=== PATIENT | female | born 1970 | race Caucasian/White ===

== ENCOUNTER 2025-04-07 17:49 | Emergency (ER) | payer BC, SELFPAY ==
--- OUTSIDE RECORDS SUMMARY | 2025-04-06 09:00 | XMS_ITS | Encounter Summary ---
Author Organization [facility] Address [address] [place] [id number] Phone Care Team Providers Care Culture Manager Name Role Phone Oniel Denis COOKER TENDER Primary Care Provider [phone] Reason for Visit * Reason Comments Sore Throat Pt presents for eval of sore throat Encounter Details Date Type Department Care Team (Late st Contact Info) Description 2025 9:00 AM EDT Office Visit [facility] [address] [address] Lolly Burk FNP [address] [place] [id number] [email or web address] Neck swelling (Primary Dx) Social History Tobacco Use Types Packs/Day Years Used Date Smoking Tobacco: Never Assessed Education Answer Date Recorded Are you interested in more education? Not on shaun e 2025 Are you concerned about learning? Not on file 2025 No 2025 No 2025 Digital Access Answer Date Recorded No 2025 No 2025 Reliable internet access at home? Not on file 2025 Device with a working camera? Not on file Comments Unknown Sex and Gender Information Value Date Recorded Sex Assigned at Not on file Legal Sex Female 5:24 AM EDT Gender Identity Not on file Sexual Orientation Not on file documented as of this encounter Last Filed Vital Signs Vital Sign Reading Time Taken Comments Blood Pressure 150/80 2025 9:26 AM EDT Pulse 66 2025 9:26 AM EDT Temperature 36.3 C (97.3 F) 2025 9:26 AM EDT Respiratory Rate 17 2025 9:26 AM EDT Oxygen Saturation 99% 2025 9:26 AM EDT Inhaled Oxygen Concentration - - Weight - - Height - - Body Mass Index - - documented in this encounter Patient Instructions * Patient Instructions* Lolly Burk FNP - 2025 9:00 AM EDT I will call if strep test is positive. Ear, throat, oral exam without signs of infection. Recommend pcp for ultrasound of right sided neck swelling and pain. It may be worth calling your new pcp and explaining symptoms and visit. Otherwise ED for further evaluation. documented in this encounter Progress Notes * Lolly Burk FNP - 2025 9:00 AM EDT Images from the original note were not included. Subjective: Patient ID: Mindy Travis is a 55 y.o. female. Pt with sore right neck for 3 weeks. Denies feeling ill or other symptoms. Review of Systems Constitutional: Negative for fatigue and fever. HENT: Negative for congestion, ear pain and sore throat. Eyes: Negative for pain. Respiratory: Negative for cough and shortness of breath. Cardiovascular: Negative for chest pain. Gastrointestinal: Negative for abdominal pain, constipation, diarrhea, nausea and vomiting. Genitourinary: Negative for dysuria and flank pain. Neurological: Negative for dizziness, light-headedness and headaches. Hematological: Negative for adenopathy. All other systems reviewed and are negative. Skin: Negative for color change. Musculoskeletal: Positive for neck pain (pain and swelling, soft tissue). Negative for joint pain and back pain. Vitals: 04/06/25 0926 BP: (!) 150/80 Pulse: 66 Resp: 17 Temp: 36.3 ??C (97.3 ??F) TempSrc: Temporal SpO2: 99% Objective: Physical Exam Vitals and nursing note reviewed. Constitutional: General: She is not in acute distress. Appearance: Normal appearance. She is not ill-appearing, toxic-appearing or diaphoretic. HENT: Head: Normocephalic and atraumatic. Right Ear: Tympanic membrane and ear canal normal. Left Ear: Tympanic membrane and ear canal normal. Nose: Nose normal. No congestion or rhinorrhea. Mouth/Throat: Mouth: Mucous membranes are moist. No oral lesions. Pharynx: Oropharynx is clear. Uvula midline. No pharyngeal swelling, oropharyngeal exudate, posterior oropharyngeal erythema or uvula swelling. Tonsils: No tonsillar exudate or tonsillar abscesses. 0 on the right. 0 on the left. Eyes: Extraocular Movements: Extraocular movements intact. Conjunctiva/sclera: Conjunctivae normal. Pupils: Pupils are equal, round, and reactive to light. Neck: Thyroid: No thyromegaly. Comments: Soft tissue swelling left side of neck without palpable mass. No erythema. Cardiovascular: Rate and Rhythm: Normal rate and regular rhythm. Pulses: Normal pulses. Heart sounds: Normal heart sounds. Pulmonary: Effort: Pulmonary effort is normal. Breath sounds: Normal breath sounds. Abdominal: General: Abdomen is flat. Musculoskeletal: General: Normal range of motion. Cervical back: Normal range of motion and neck supple. Lymphadenopathy: Cervical: No cervical adenopathy. Skin: General: Skin is warm and dry. Neurological: General: No focal deficit present. Mental Status: She is alert and oriented to person, place, and time. Mental status is at baseline. Psychiatric: Mood and Affect: Mood normal. Behavior: Behavior normal. Thought Content: Thought content normal. Judgment: Judgment normal. Results for orders placed or performed in visit on 04/06/25 POCT Rapid Strep A Result Value Ref Range Strep A, PCR Not Detected Not Detected Procedure: Procedures Assessment/Plan: Diagnosis Plan 1. Neck swelling Assessment and Plan: Well appearing pt in nad complaining of right side of neck pain and swelling for 3 weeks. Denies any other symptoms. Soft tissue swelling visible without palpable mass or erythema. Pt reports in November a bone spur removed on that side from jaw bone. No pain in oral cavity. Discussed and agreed on pharm and non pharm plan of care. Pt advised ultrasound would likely be done to evaluate. Pt states [place] Has not seen pcp yet. Advised call pcp to see if they can see your sooner or go to the ED. documented in this encounter Plan of Treatment Not on file documented as of this encounter Procedures Procedure Name Priority Date/Time Associated Diagnosis Comments POCT RAPID STREP A Routine 2025 9: 30 AM EDT documented in this encounter Results * POCT Rapid Strep A (2025 9:30 AM EDT) [facility] Signature Strep A, PCR Not Detected Not Detected C [facility] 2025 9:30 AM EDT 2025 9:58 AM EDT Lolly NEWELL POINT OF CARE TEST ORDERABL ES Final Result [facility] [address] [address], [facility] [phone] documented in this encounter Visit Diagnoses Diagnosis Neck swelling- Primary Swelling, mass, or lump in head and neck documented in this encounter Care Teams Culture Manager Relationship Specialty Start Date End Date Oniel Denis NP [address] [place] [id number] PCP - General 04/06/25 documented as of this encounter Additional Source Comments The information contained in this document represents components of the legal health record. It is not the complete legal health record.[facility]
--- NOTE | ~2025-04-07 | XR_ITS ---
CLINICAL HISTORY: cough x3 wks 2 view chest x-ray Comparison: None provided Findings: No consolidation, pneumothorax, or pleural effusion. Mild/borderline cardiomegaly. Degenerative changes include imaged left AC joint. IMPRESSION: No consolidation. This document has been electronically signed by: Terrence Rosales MD on 04/07/2025 19:35:32
[2025-04-07 18:11] VITALS: BP 178/89; PULSE 75; RESP 16; TEMP 36.1; O2SAT 97; BMI 28.9
--- NOTE | 2025-04-07 18:12 | ED_ITS ---
HPI - General Adult General Chief complaint: General Medical Stated complaint: Cough Time Seen by Provider: 04/07/25 20:09 Source: patient Limitations: no limitations History of Present Illness ED Provider: Alice Borrego PA-C HPI narrative: 55-year-old female who is otherwise healthy, presents with sore throat for weeks. Patient is concerned given the duration of her symptoms. She seems to improve, then relapses. She states this is the worse sore throat over life. She has been tested for strep throat, has had viral panels, everything has come back negative. The patient has no risk factors for STD, she has not had fevers. She states the lymph nodes in her neck are prominent. She is concerned she has a lymphoma. She has not been tested for mononucleosis. Related Data Allergies Allergy/AdvReac Type Severity Reaction Status Date / Time No Known Allergies Allergy Verified 04/07/25 18:12 Review of Systems 2 Review of Systems: Yes all other systems are reviewed and are negative Constitutional: Constitutional: Reports fatigue and Denies fever(s) ENT: Reports sore throat Cardiovascular: Cardiovascular: Denies dyspnea Respiratory: Respiratory: Denies cough and Denies dyspnea Gastrointestinal: Gastrointestinal: Denies nausea and Denies vomiting Endocrine: Endocrine: Reports fatigue PMFSH Past Medical History Attestation statement: The following information was validated with the patient. Social History Social History Smoked in Last 30 Days: No Use of substances other than those prescribed or required for medical reasons: No Advance Directives: No Advance Directives Information Provided: Yes Do you have a plan to hurt others: No Plan Physical Exam ED Vital Signs: Vital Signs - 24 hr 04/07/25 18:11 04/07/25 20:29 Temperature 97 F 98.6 F Pulse Rate 75 64 Respiratory Rate 16 14 Blood Pressure 178/89 H 135/58 L Pulse Oximetry 97 96 Oxygen Delivery Method Room Air Room Air BMI result Body Mass Index 28.9 Const Other: Alert well-appearing Orientation/consciousness: patient oriented x3 HENMT Other: Opiate erythematous, without exudate, no lesions present over the oropharynx, uvula midline, no sublingual fluctuance, no swelling inferior to the jawline. No trismus no drooling Neck Other: Anterior cervical lymphadenopathy Resp Effort & Inspection: normal respiratory effort Cardio Other: Normal peripheral perfusion Skin Other: Warm dry no rash Neuro General: patient oriented x3, gait normal, no focal motor deficits and CN's II- XI intact bilaterally Psych Other: Cooperative Course Course Course Narrative: This is a Rapid Medical Examination (RME) performed by Dede Rey PA-C in triage. Full HPI, ROS, assessment and treatment plan per primary provider in the Main ED. Hx: 55 yo F hx of breast cancer in remission here with intermittent sore throat and cough x3 weeks. evaluated at , noted to have swelling to right cervical LN - discussed possible lymphoma/ cancer given hx. advised to come to the ED for further eval. no PCP - has an appointment with one in 1 mo. lived in [place] x25 years, returned two months ago. Plan: viral/strep swabs, screening labs Medical Decision Making Medical Decision Making [facility] Narrative: 55-year-old female who is otherwise healthy, presents with sore throat for weeks. Patient is concerned given the duration of her symptoms. She seems to improve, then relapses. She states this is the worse sore throat over life. She has been tested for strep throat, has had viral panels, everything has come back negative. The patient has no risk factors for STD, she has not had fevers. She states the lymph nodes in her neck are prominent. She is concerned she has a lymphoma. She has not been tested for mononucleosis. No chronic issues History: Per patient I have considered the following differential diagnoses: Strep pharyngitis, viral pharyngitis, mononucleosis, RPA, GAS TRANSFER OPERATOR, Tom angina, oral candidal infection, STD related pharyngitis Plan: Screening labs including viral panel, strep screen ordered from triage and a chest x-ray. Her assessment is negative. I explained to the patient that her cell blood count and differential were completely normal. That there are numerous cons of lymphoma, if she had lymphoma, she would have many other symptoms. Adding on mono test. This is likely still viral and not mononucleosis. She has no exam findings consistent with a RPA or GAS TRANSFER OPERATOR. She also has no exam findings consistent with Tom angina. She has no risk factor for gonorrhea or chlamydia, and there are no lesions of the oropharynx that are consistent with an oral candidal infection. I have independently reviewed the following tests: Labs: No leukocytosis, not anemic, no electrolyte abnormality, COVID, influenza, strep panel negative, mononucleosis negative Chest x-ray:Findings: No consolidation, pneumothorax, or pleural effusion. Mild/borderline cardiomegaly. Degenerative changes include imaged left AC joint. IMPRESSION: No consolidation. Differential Diagnosis Differential Diagnoses: The differential diagnosis associated with the presentation includes See medical decision-making Admission/Observation Consideration of admission/observation: Escalation of care including admission/observation considered Not applicable Lab Data MDM Lab Attestation statement: I reviewed the patient's lab results. 04/07/25 18:34 04/07/25 18:34 Labs: Lab Results 04/07/25 04/07/25 Range/Units 18:34 20:33 WBC 5.4 (4.8-10.8) X10*3/uL RBC 4.58 (4.20-5.50) X10*6/uL Hgb 12.9 (12.0-16.0) g/dl Hct 40.4 (37.0-47.0) % MCV 88.2 (80.0-98.0) fL MCH 28.2 (27.0-33.0) pg MCHC 31.9 (31.0-35.0) g/dl RDW 13.2 (11.0-16.0) % Plt Count 216 (160-400) X10*3/uL MPV 10.9 (9.4-12.3) fL Immature Gran % (Auto) 0.9 H (0.0-0.4) % Neut % (Auto) 66.8 (45-73) % Lymph % (Auto) 21.6 (20-40) % [place] % (Auto) 6.1 (2-11) % Eos % (Auto) 3.9 (0-4) % Baso % (Auto) 0.7 (0-2) % Lymph # (Auto) 1.2 (1.2-4.9) X10*3/uL [place] # (Auto) 0.3 (0.1-1.2) X10*3/uL Eos # (Auto) 0.2 (0.0-0.4) X10*3/uL Baso # (Auto) 0.0 (0.0-0.2) X10*3/uL Abs Immat Gran (auto) 0.05 H (0.00-0.03) X10*3/uL Absolute Neuts (auto) 3.6 (2.0-8.3) x10*3/uL Absolute Nucleated RBC 0.000 (0.0-0.012) X10*3/uL Nucleated RBC % (auto) 0.0 (0.0-0.2) /100WBC Sodium 141 (135-145) mmol/L Potassium 4.0 (3.3-5.1) mmol/L Chloride 104 (96-108) mmol/L Carbon Dioxide 29 (22-29) mmol/L Anion Gap 12 (12-20) BUN 11 (9-16) mg/dL Creatinine 0.83 (0.5-1.4) mg/dL Estim Creat Clear Calc 89.0 Estimated GFR > 60 Random Glucose 115 (60-115) mg/dL Calcium 9.3 (8.4-10.2) mg/dL Total Bilirubin 0.4 (0.0-1.0) mg/dL AST 18 (5-31) U/L ALT 16 (0-31) U/L Alkaline Phosphatase 84 (39-117) U/L Total Protein 6.7 (6.5-8.0) g/dL Albumin 4.4 (3.5-5.0) g/dL COVID-19 (LARON) Negative (Negative) COVID-19 Clin Com See Note Monoscreen Negative (Negative) Influenza Type A (DEMETRIS) Negative (Negative) Influenza Type B (DEMETRIS) Negative (Negative) Influenza A & B Note See Note S. pyogenes GrpA DEMETRIS Negative (Negative) Radiology Impression Discussion of test interpretation with radiology: I have reviewed the radiologist's reading. Discharge Plan Discharge Clinical Impression: Pharyngitis, Acute viral syndrome Patient Disposition: Home, Self-Care Instructions: Pharyngitis (ED), Viral Syndrome (ED) Additional Instructions: All of your screening labs were completely normal, in particular your blood cell differential. You were tested for COVID influenza a and B, mononucleosis and strep pharyngitis, that testing was negative. The chest x-ray is clear for pneumonia. You were having a prolonged viral syndrome. See home care instructions. Some viruses can last for multiple weeks. You need to establish primary care, I provided you with a list of local providers. You have to call to see who is accepting new patients. Interventions: ED Discharge Assessment Last Done: 04/07/25 22:38 Discharge Date/Time: 04/07/25 22:39 Print Language: Libyan
[2025-04-07 18:39] LABS: MANUAL DIFF FLAG NO
[2025-04-07 18:48] LABS: Hematocrit 40.4 % (37.0-47.0); Hemoglobin 12.9 g/dl (12.0-16.0); Imm Gran Abs Auto 0.05 X10*3/uL (0.00-0.03); Imm Gran Pct Auto 0.9 % (0.0-0.4); Lymphocytes Absolute Auto 1.2 X10*3/uL (1.2-4.9); Mean Corpuscular HGB Conc 31.9 g/dl (31.0-35.0); Mean Corpuscular Hemoglobin 28.2 pg (27.0-33.0); Mean Corpuscular Volume 88.2 fL (80.0-98.0); NRBC Abs Auto 0.000 X10*3/uL (0.0-0.012); NRBC Pct Auto 0.0 /100WBC (0.0-0.2); Platelet Count 216 X10*3/uL (160-400); Red Blood Count 4.58 X10*6/uL (4.20-5.50); White Blood Count 5.4 X10*3/uL (4.8-10.8)
[2025-04-07 18:54] LABS: IDNOW Serial# 6674DD1D; Strep A Nucleic Acid Negative (Negative)
[2025-04-07 18:55] LABS: Alanine Aminotransferase 16 U/L (0-31); Albumin Level 4.4 g/dL (3.5-5.0); Alkaline Phosphatase 84 U/L (39-117); Anion Gap 12 (12-20); Aspartate Amino Transferase 18 U/L (5-31); Blood Urea Nitrogen 11 mg/dL (9-16); Calcium 9.3 mg/dL (8.4-10.2); Carbon Dioxide 29 mmol/L (22-29); Chloride 104 mmol/L (96-108); Creatinine Clr Calc Pharmacy 89.0; Estimated Glomerular Filt Rate > 60; Potassium 4.0 mmol/L (3.3-5.1); Sodium 141 mmol/L (135-145); Total Protein 6.7 g/dL (6.5-8.0)
[2025-04-07 19:00] LABS: COVID-19 Test Negative (Negative); IDNOW Serial# 55D5AD1C
[2025-04-07 19:02] LABS: IDNOW Serial# 58CA691E; Influenza B2 Negative (Negative)
--- OUTSIDE RECORDS SUMMARY | 2025-04-07 19:31 | XMS_ITS | Clinical Summary ---
Author Organization [facility] Address [address] [place] [id number] Phone Care Team Providers Care Alcohol Law Enforcement Agent Name Role Phone Oniel Denis CATALINA Primary Care Provider [phone] Allergies Active Allergy Reactions Criticality Noted Date Comments Iodine 2025 Medications metoprolol tartrate (LOPRESSOR) 50 MG tablet Take 50 mg by mouth 2 (two) times a day. Active Active Problems No known active problems Encounters Date Type Department Care Team Description 2025 9:00 AM EDT [facility] Visit [facility] at [address] [address] Lolly Burk, VARNISH MAKER Neck swelling (Primary Dx) from Last 3 Months Social History Tobacco Use Types Packs/Day Years [...] on file Sexual Orientation Not on file Last Filed Vital Signs Vital Sign Reading Time Taken Comments Blood Pressure 150/80 2025 9:26 AM EDT Pulse 66 2025 9:26 AM EDT Temperature 36.3 C (97.3 F) 2025 9:26 AM EDT Respiratory Rate 17 2025 9:26 AM EDT Oxygen Saturation 99% 2025 9:26 AM EDT Inhaled Oxygen Concentration - - Weight - - Height - - Body Mass Index - - Plan of Treatment Health Maintenance Due Date Last Done Comments Adult Td,Tdap Booster 1971 LIPID PANEL 1971 DEPRESSION SCREENING 1983 SMOKING Hx and SMOKELESS TOB ACCO SCREENING 1984 HEPATITIS C SCREENING 1989 HIV ONE-TIME SCREENING (18-6 5 YEARS) 1989 PAP SMEAR 1992 MAMMOGRAM 2011 COLOGUARD 2016 COLONOSCOPY 2016 COLORECTAL CANCER SCREENING 2016 FIT TEST 2016 FOBT 2016 SIGMOIDOSCOPY 2016 VIRTUAL COLONOSCOPY 2016 PNEUMOCOCCAL VACCINES (50+ y ears) (1 of 1 - PCV) 2021 ZOSTER VACCINES (1 of 2) 2021 INFLUENZA VACCINE (#1) 2025 COVID-19 VACCINE (1 - 2024-2 6 season) 2025 RSV VACCINE (1 - 1-dose 75+ series) 2046 HEPATITIS A VACCINES Aged Out No long er eligible based on patient's age to complete this topic HIB VACCINES Aged Out No longer eligi ble based on patient's age to complete this topic MENINGOCOCCAL VACCINES (ACWY) Aged Out No longer eligible based on patient's age to complete this topic MENINGOCOCCAL VACCINES (B) Aged Out N o longer eligible based on patient's age to complete this topic Medical Devices Not on file Procedures Procedure Name Priority Date/Time Associated Diagnosis Comments POCT RAPID STREP A Routine 2025 9: 30 AM EDT from Last 3 Months Results * POCT Rapid Strep A (2025 9:30 AM EDT) Strep A, PCR Not Detected Not Detected [facility] 2025 9:30 AM EDT 2025 9:58 AM EDT Lolly Ryan Bhargavi VARNISH MAKER POINT OF CARE TEST ORDERABL ES Final Result [facility] [address] [address], [facility] [phone] from Last 3 Months Insurance [facility] Care Teams Alcohol Law Enforcement Agent Relationship Specialty Start Date End Date Oniel Denis NP [address] [place] [id number] PCP - General 04/06/25 Additional Source Comments The information contained in this document represents components of the legal health record. It is not the complete legal health record.[facility]
[2025-04-07 20:29] VITALS: BP 135/58; PULSE 64; RESP 14; TEMP 37; O2SAT 96
[2025-04-07 22:38] VITALS: BP 131/57; PULSE 63; RESP 18; TEMP 37.1; O2SAT 96
== END 2025-04-07 22:39 | disposition home or self-care (01) ==
PROVIDERS: Physician Assistant Medical; Emergency Provider Emergency Medicine Emergency Medical Services
DX: B34.9 Viral infection, unspecified (principal); J02.9 Acute pharyngitis, unspecified; Z03.818 Encounter for observation for suspected exposure to other biological agents ruled out
CPT/HCPCS: 36415; 71046; 80053; 85025; 86308; 87502; 87635; 87651; 99283; 99284

== ENCOUNTER → 2025-04-07 18:54 | Outpatient (BNV) | payer BC, SELFPAY | PROVIDERS: Visit Provider Radiology Neuroradiology | DX: R05.9 Cough, unspecified (principal) | CPT/HCPCS: 71046 ==